=== PATIENT | male | born 1975 | race Caucasian/White ===

== ENCOUNTER 2021-09-11 14:46 | Emergency (ER) | payer BC ==
[2021-09-11 15:25] LABS: Absolute Lymphocytes (CBC) 2.9 K/uL (0.7-4.9); Hematocrit 49.4 % (39.6-49.0); MCV 90.6 fL (80-100); MPV 9.6 fL (7.6-11.3); RBC Red Blood Cell Count 5.46 M/uL (4.33-5.43)
--- NOTE | 2021-09-11 15:41 | RAD REPORT ---
EXAM DESCRIPTION: RAD - Chest Single View - 09/11/2021 3:35 pm CLINICAL HISTORY: CHEST PAIN COMPARISON: No comparisons FINDINGS: Lines: None. Lungs: No evidence of edema or pneumonia. Pleural: No significant pleural effusions or pneumothorax. Cardiac: The heart size is within normal limits. Bones: No acute fractures. Other: IMPRESSION: No acute cardiopulmonary disease.
[2021-09-11 15:44] LABS: Troponin High Sensitivity 4.8 pg/mL (<58.9)
--- NOTE | 2021-09-11 16:38 | RAD REPORT ---
EXAM DESCRIPTION: CT - Head Brain Wo Cont - 09/11/2021 4:29 pm CLINICAL HISTORY: Dizziness, non-specific COMPARISON: Chest Single View dated 09/11/2021No comparisons TECHNIQUE: All CT scans are performed using dose optimization technique as appropriate and may inclu de automated exposure control or mA/KV adjustment according to patient size. FINDINGS: No intracranial hemorrhage, hydrocephalus or extra-axial fluid collection.No areas of brai n edema or evidence of midline shift. Mild ethmoid air cell thickening. The calvarium is intact. IMPRESSION: No acute intracranial abnormality.
[2021-09-11] MEDS ORDERED: NA CHLORIDE 0.9% 1,000 ML ONE (17:33)
--- NOTE | 2021-09-11 19:02 | ER ---
Nurse's Notes [facility] Name: Milad Zheng Age: 45 yrs Sex: Male : 1975 Arrival Date: 09/11/2021 Time: 14:47 Bed 20 Private MD: Diagnosis: Palpitations Presentation: 09/11 15:00 Chief complaint: Patient states: Chest pain, shortness of breath and episodes of ss dizziness that began when patient woke up around 1000 this AM. Pt reports he had a similar episode 3 days ago, but after sitting down for a while it went away. Today, it seems to be getting progressively worse.". Coronavirus screen: Client denies travel out of the [place] in the last 14 days. Ebola Screen: Patient denies exposure to infectious person. Patient denies travel to an Ebola-affected area in the 21 days before illness onset. Initial Sepsis Screen: Does the patient meet any 2 criteria? No. Patient's initial sepsis screen is negative. Does the patient have a suspected source of infection? No. Patient's initial sepsis screen is negative. Risk Assessment: Do you want to hurt yourself or someone else? Patient reports no desire to harm self or others. Onset of symptoms was September 11, 2021. 15:00 Method Of Arrival: Ambulatory ss 15:00 Acuity: ELIZA 3 ss Historical: - Allergies: 15:01 Demerol; ss - Home Meds: 15:01 Lisinopril Oral [Active]; ss - PMHx: 15:01 Hypertensive disorder; ss - PSHx: 15:01 Kidney donor; R wrist; Back sx; ss - Immunization history:: Client reports having NOT received the Covid vaccine. - Social history:: Smoking status: Patient reports the use of cigarette tobacco products, smokes one-half pack cigarettes per day. Screenin:25 Abuse screen: Denies threats or abuse. Denies injuries from another. Nutritional ph screening: No deficits noted. Tuberculosis screening: No symptoms or risk factors identified. Fall Risk None identified. Assessment: 15:30 General: Appears in no apparent distress. uncomfortable, Behavior is calm, cooperative, ph appropriate for age, Denies fever, feeling ill. Pain: Complains of pain in chest Quality of pain is described as pressure, Pain began this morning. Neuro: Level of Consciousness is awake, alert, obeys commands, Oriented to person, place, time, situation, Reports dizziness. Cardiovascular: Reports chest pain, lightheadedness, palpitations, shortness of breath, Capillary refill < 3 seconds in bilateral fingers Patient's skin is warm and dry. Rhythm is sinus rhythm w/ runs of SVT noted lasting approx 4-6 seconds then returns to SR Chest pain quality is pressure. Respiratory: Reports shortness of breath Airway is patent Respiratory effort is even, unlabored. Derm: Skin is intact, is healthy with good turgor, Skin is pink, warm \\T\\ dry. Musculoskeletal: Circulation, motion, and sensation intact. Range of motion: intact in all extremities. 16:25 Reassessment: Patient appears in no apparent distress at this time. Patient and/or ph family updated on plan of care and expected duration. Pain level reassessed. Patient is alert, oriented x 3, equal unlabored respirations, skin warm/dry/pink. Pt taken to CT via stretcher. 17:30 Reassessment: Patient appears in no apparent distress at this time. No changes from ph previously documented assessment. Patient and/or family updated on plan of care and expected duration. Pain level reassessed. Patient is alert, oriented x 3, equal unlabored respirations, skin warm/dry/pink. 19:01 Reassessment: Patient appears in no apparent distress at this time. Patient and/or ph family updated on plan of care and expected duration. Pain level reassessed. Patient is alert, oriented x 3, equal unlabored respirations, skin warm/dry/pink. Dr Oswald at bedside to speak w/ pt. Vital Signs: 15:00 BP 131 / 99; Pulse 76; Resp 18; Temp 97.5(TE); Pulse Ox 100% on R/A; Weight 130.18 kg; ss Height 6 ft. 7 in. (200.66 cm); Pain 0/10; 15:30 BP 133 / 91; Pulse 71; Resp 18; Pulse Ox 98% on R/A; ph 16:32 BP 121 / 91; Pulse 61; Resp 18; Pulse Ox 99% ; ph 17:30 BP 111 / 72; Pulse 65; Resp 16; Pulse Ox 98% on R/A; ph 17:58 BP 127 / 82 Supine; Pulse 57; ph 17:58 BP 120 / 89 Sitting; Pulse 64; ph 17:58 BP 125 / 91 Standing; Pulse 75; ph 18:30 BP 128 / 85; Pulse 62; Resp 18; Pulse Ox 100% on R/A; ph 15:00 Body Mass Index 32.33 (130.18 kg, 200.66 cm) ED Course: 14:47 Patient arrived in ED. rg4 15:01 Triage completed. ss 15:01 Arm band placed on right wrist. ss 15:06 Brionna Morales, RN is Primary Nurse. ph 15:08 Dave Oswald MD is Attending Physician. kdr 15:17 EKG done, by ED staff, reviewed by Dave Oswald MD. jw7 15:19 Placed in gown. Bed in low position. Call light in reach. Side rails up X 1. Door mb7 closed. Noise minimized. Warm blanket given. Client placed on continuous cardiac and pulse oximetry monitoring. NIBP monitoring applied. panel monitor on. Pulse ox on. 15:19 Inserted saline lock: 20 gauge in right forearm, using aseptic technique. Blood mb7 collected. 15:19 Basic Metabolic Panel Sent. mb7 15:19 CBC with Diff Sent. mb7 15:19 Troponin HS Sent. mb7 15:37 XRAY Chest (1 view) In Process Unspecified. EDMS 15:39 EKG done, by ED staff, reviewed by Dave Oswald MD. mb7 16:25 No provider procedures requiring assistance completed. Patient maintains SpO2 ph saturation greater than 95% on room air. 16:31 CT Head Brain wo Cont In Process Unspecified. EDMS 19:23 Attending Physician role handed off by Dave Oswald MD lupe 19:23 Efren Barba MD is Attending Physician. lupe 19:30 IV discontinued, intact, bleeding controlled, No redness/swelling at site. Pressure ph dressing applied. Administered Medications: 17:58 Drug: NS 0.9% 1000 ml Route: IV; Rate: 1 bolus; Site: right forearm; ph 19:30 Follow up: Response: No adverse reaction; IV Status: Completed infusion ph 18:23 Drug: Lopressor (metoprolol TARTRATE)) 25 mg Route: PO; ph 19:30 Follow up: Response: No adverse reaction ph Medication: 16:25 VIS not applicable for this client. ph Outcome: 19:02 Discharge ordered by . kdr 19:30 Discharged to home ambulatory, with family. ph 19:30 Condition: good 19:30 Discharge instructions given to patient, family, Instructed on discharge instructions, follow up and referral plans. medication usage, Demonstrated understanding of instructions, follow-up care, medications, Prescriptions given X 1. 19:30 Patient left the ED. ph Signatures: Dispatcher [employer] EDNC Efren Barba MD MD cha Rittger, Kevin, MD MD kdr Smirch, Shelby, RN RN Brionna Morales RN RN Linda Nixon4 Erlinda Sanders7 Selin Chiu jw7 Corrections: (The following items were deleted from the chart) 15:03 15:01 PSHx: None; [facility]
--- NOTE | 2021-09-11 19:03 | EDPHYS ---
Physician Documentation [facility] Name: Milad Zheng Age: 45 yrs Sex: Male : 1975 Arrival Date: 09/11/2021 Time: 14:47 Bed 20 Private MD: ED Physician Efren Barba HPI: 09/11 17:46 This 45 yrs old Male presents to ER via Ambulatory with complaints of Chest Pain, kdr Dizziness, Shortness Of Breath. 17:46 The patient or guardian reports chest pain that is located primarily in the substernal kdr area, chest diffusely. Historical: - Allergies: 15:01 Demerol; ss - Home Meds: 15:01 Lisinopril Oral [Active]; ss - PMHx: 15:01 Hypertensive disorder; ss - PSHx: 15:01 Kidney donor; R wrist; Back sx; ss - Immunization history:: Client reports having NOT received the Covid vaccine. - Social history:: Smoking status: Patient reports the use of cigarette tobacco products, smokes one-half pack cigarettes per day. Vital Signs: 15:00 BP 131 / 99; Pulse 76; Resp 18; Temp 97.5(TE); Pulse Ox 100% on R/A; Weight 130.18 kg; ss Height 6 ft. 7 in. (200.66 cm); Pain 0/10; 15:30 BP 133 / 91; Pulse 71; Resp 18; Pulse Ox 98% on R/A; ph 16:32 BP 121 / 91; Pulse 61; Resp 18; Pulse Ox 99% ; ph 17:30 BP 111 / 72; Pulse 65; Resp 16; Pulse Ox 98% on R/A; ph 17:58 BP 127 / 82 Supine; Pulse 57; ph 17:58 BP 120 / 89 Sitting; Pulse 64; ph 17:58 BP 125 / 91 Standing; Pulse 75; ph 18:30 BP 128 / 85; Pulse 62; Resp 18; Pulse Ox 100% on R/A; ph 15:00 Body Mass Index 32.33 (130.18 kg, 200.66 cm) ss MDM: 19:02 Patient medically screened. kdr 09/11 15:09 Order name: Basic Metabolic Panel; Complete Time: 15:56 kdr 09/11 15:09 Order name: CBC with Diff; Complete Time: 15:56 kdr 09/11 15:09 Order name: Troponin HS; Complete Time: 15:56 [facility] 09/11 15:09 Order name: XRAY Chest (1 view); Complete Time: 15:56 [facility] 09/11 15:10 Order name: PROBNP; Complete Time: 15:56 [facility] 09/11 15:56 Order name: CT Head Brain wo Cont; Complete Time: 17:35 [facility] 09/11 15:09 Order name: EKG; Complete Time: 15:10 [facility] 09/11 15:09 Order name: Cardiac monitoring; Complete Time: 15:19 [facility] 09/11 15:09 Order name: EKG - Nurse/Tech; Complete Time: 15:18 [facility] 09/11 15:09 Order name: IV Saline Lock; Complete Time: 15:19 [facility] 09/11 15:09 Order name: Labs collected and sent; Complete Time: 15:19 [facility] 09/11 15:09 Order name: O2 Per Protocol; Complete Time: 15:19 [facility] 09/11 15:09 Order name: O2 Sat Monitoring; Complete Time: 15:19 [facility] 09/11 17:35 Order name: Orthostatic Blood Pressure; Complete Time: 17:58 kdr Administered Medications: 17:58 Drug: NS 0.9% 1000 ml Route: IV; Rate: 1 bolus; Site: right forearm; ph 19:30 Follow up: Response: No adverse reaction; IV Status: Completed infusion ph 18:23 Drug: Lopressor (metoprolol TARTRATE)) 25 mg Route: PO; ph 19:30 Follow up: Response: No adverse reaction ph Disposition Summary: 09/11/21 19:02 Discharge Ordered Location: Home kdr Problem: new kdr Symptoms: have improved kdr Condition: Stable kdr Diagnosis - Palpitations kdr Followup: kdr - With: Private Physician - When: 2 - 3 days - Reason: If symptoms return, Further diagnostic work-up, Recheck today's complaints, Continuance of care, Re-evaluation by your physician Discharge Instructions: - Palpitations, [id number] kdr - Sinus Tachycardia kdr - Discharge Summary Sheet pm1 Forms: - Medication Reconciliation Form kdr - Thank You Letter kdr Prescriptions: - Toprol XL 50 mg Oral tablet extended release 24 hr - take 1 tablet by ORAL route once daily; 30 tablet; Refills: 0, Product lupe Selection Permitted Signatures: Dispatcher [facility] HospitalDave Clark MD MD kdr Rosalind Ferreira RN RN ss Brionna Morales RN RN ph Corrections: (The following items were deleted from the chart) 15:03 15:01 PSHx: None; [facility]
[2021-09-11 19:42] VITALS: TEMP 97.5
[2021-09-11 19:51] VITALS: BP 128/85; O2SAT 100
--- NOTE | 2021-09-14 08:03 | EKG ---
Test Date: 2021-09-11 Test Time: 15:11:33 Turner Off: DEANNE MEASUREMENT RESULTS: Intervals: Rate: 66 NE: 180 QRSD: 92 QT: 364 QTc: 381 [place]: P: 44 NE: 180 QRS: 6 T: 29 INTERPRETIVE STATEMENTS: Sinus rhythm with premature atrial complexes Otherwise normal ECG No previous ECG available for comparison Electronically Signed On 09-14-21 07:56:12 CDT by Kentrell Hinson
--- NOTE | 2021-09-14 12:49 | EKG ---
Test Date: 2021-09-11 Test Time: 15:28:00 Founder And President: DEANNE MEASUREMENT RESULTS: Intervals: Rate: 69 IA: 182 QRSD: 90 QT: 364 QTc: 390 [place]: P: 43 IA: 182 QRS: 32 T: 46 INTERPRETIVE STATEMENTS: Sinus rhythm with premature supraventricular complexes Otherwise normal ECG Compared to ECG 09/11/2021 15:11:33 No significant changes Electronically Signed On 09-14-21 12:47:35 CDT by Vasu Dubon
== END 2021-09-11 19:30 | disposition home or self-care (01) ==
LOC: ER 14:46
DX: R00.2 Palpitations (principal); R07.89 Other chest pain; I10 Essential (primary) hypertension; F17.210 Nicotine dependence, cigarettes, uncomplicated; Z88.5 Allergy status to narcotic agent
CPT/HCPCS: 96361; 93005 ×2; 85025; 80048; 36415; 84484; 83880; 70450; 71045; 96360; 99285; J7030